=== PATIENT | male | born 2000 | race Caucasian/White ===

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

== ENCOUNTER 2021-09-29 17:54 | Emergency (ER) | payer OTHER ==
[2021-09-29 19:00] VITALS: BP 153/92; PULSE 60; RESP 18; TEMP 97
--- NOTE | 2021-09-29 20:49 | ED ---
URI HPI - General Chief Complaint: Upper Respiratory Infection Stated Complaint: Cough/weak Source: patient, RN notes reviewed Mode of arrival: ambulatory Limitations: no limitations - History of Present Illness Initial Comments: Patient is a 21-year-old male that presents to emergency department complaining of runny nose cough and other upper respiratory tract symptoms for about a week and half. He notes he can emergency room to get evaluated for Covid. He just wanted make sure. Patient was otherwise well-appearing in no apparent distress. Denied any other issues or complaints. He denied chest pain shortness breath headache nausea vomiting diarrhea constipation fever fatigue chills. - Related Data Home Medications Medication Instructions Recorded Confirmed Dextroamphetamine/Amphetamine 10 mg PO DAILY 02/13/15 02/13/15 [Adderall] Allergies Allergy/AdvReac Type Severity Reaction Status Date / Time No Known Allergies Allergy Verified 09/29/21 19:00 Review of Systems ROS Statement: Those systems with pertinent positive or pertinent negative responses have been documented in the HPI. ROS Other: All systems not noted in ROS Statement are negative. Past Medical History Past Medical History: No Reported History History of Any Multi-Drug Resistant Organisms: None Reported Past Surgical History: No Surgical Hx Reported Past Psychological History: ADD/ADHD Smoking Status: Never smoker Past Alcohol Use History: None Reported Past Drug Use History: Marijuana General Exam Limitations: no limitations General appearance: alert, in no apparent distress Head exam: Present: atraumatic, normocephalic, normal inspection Eye exam: Present: normal appearance, PERRL, EOMI. Absent: scleral icterus, conjunctival injection, periorbital swelling ENT exam: Present: normal exam, mucous membranes moist Neck exam: Present: normal inspection Respiratory exam: Present: normal lung sounds bilaterally. Absent: respiratory distress, wheezes, rales, rhonchi, stridor Cardiovascular Exam: Present: regular rate, normal rhythm, normal heart sounds. Absent: systolic murmur, diastolic murmur, rubs, gallop, clicks Extremities exam: Present: normal inspection, full ROM, normal capillary refill. Absent: tenderness, pedal edema, joint swelling, calf tenderness Neurological exam: Present: alert, oriented X3 Psychiatric exam: Present: normal affect, normal mood Skin exam: Present: warm, dry, intact, normal color. Absent: rash Course Vital Signs 09/29/21 18:57 Temperature 97.0 F L Pulse Rate 60 Respiratory 18 Rate Blood Pressure 153/92 O2 Sat by Pulse 99 Oximetry Medical Decision Making - Medical Decision Making 21-year-old male with upper respiratory tract symptoms for about a week and a half. Covid test ordered. Covid test negative. Patient was informed the most likely has other upper respiratory tract infection. Patient will discharge home. Case discussed with Dr. Bell. - Lab Data Lab Results 09/29/21 Range/Units 19:02 Coronavirus (PCR) Not Detected (Not Detectd) Disposition Clinical Impression: Acute upper respiratory infection Disposition: HOME SELF-CARE Condition: Stable Instructions (If sedation given, give patient instructions): Upper Respiratory Infection (ED) Additional Instructions: Please return to the Emergency Department if symptoms worsen or any other concerns. Follow-up with primary care 1-2 days. Take Tylenol Motrin as needed for aches pains and fevers. Is patient prescribed a controlled substance at d/c from ED?: No Referrals: Don Quesada MD [Primary Care Provider] - 1-2 days Time of Disposition: 20:48
== END 2021-09-29 20:56 | disposition home or self-care (01) ==
LOC: EC 17:54
DX: R05.9 Cough, unspecified (principal); R53.1 Weakness; J06.9 Acute upper respiratory infection, unspecified; Z20.822 Contact with and (suspected) exposure to COVID-19
CPT/HCPCS: 87635; 99283

== ENCOUNTER 2022-05-05 11:59 | Emergency (ER) | payer OTHER ==
[2022-05-05 12:03] VITALS: BP 133/81; PULSE 105; RESP 18; TEMP 98.7
[2022-05-05] MEDS ORDERED: ONDANSETRON ODT 4 MG TAB PO STA (12:41)
[2022-05-05] MEDS ORDERED: IBUPROFEN 600 MG TAB PO STA (12:41)
[2022-05-05] MEDS ORDERED: ACETAMINOPHEN TAB 500 MG TAB PO STA (12:41)
[2022-05-05] MEDS ORDERED: ONDANSETRON 4 MG ODT STARTER PACK 2 TAB BTL PO STA (13:00)
--- NOTE | 2022-05-05 13:00 | ED ---
General Adult HPI - General Chief complaint: Headache Stated complaint: Migraine Time Seen by Provider: 05/05/22 12:15 Source: patient, RN notes reviewed, old records reviewed Mode of arrival: ambulatory - History of Present Illness Initial comments: This is a 21-year-old male who presents emergency department stating that he is not vaccinated but he got tested this morning and he tested positive for COVID. Patient complains of a headache little bit of a sore throat a little lower back aching. Patient also states he has a fever. Patient states he vomited times one. Patient denies any chest pain difficulty breathing shortness of breath. Patient denies any diarrhea. - Related Data Home Medications Medication Instructions Recorded Confirmed Dextroamphetamine/Amphetamine 10 mg PO DAILY 02/13/15 02/13/15 [Adderall] Allergies Allergy/AdvReac Type Severity Reaction Status Date / Time No Known Allergies Allergy Verified 05/05/22 12:03 Review of Systems ROS Statement: Those systems with pertinent positive or pertinent negative responses have been documented in the HPI. ROS Other: All systems not noted in ROS Statement are negative. Past Medical History Past Medical History: No Reported History History of Any Multi-Drug Resistant Organisms: None Reported Past Surgical History: No Surgical Hx Reported Past Psychological History: ADD/ADHD Smoking Status: Never smoker Past Alcohol Use History: None Reported Past Drug Use History: Marijuana General Exam - General Exam Comments Initial Comments: GENERAL: Patient is well-developed and well-nourished. Patient is nontoxic and well- hydrated and is in mild distress. ENT: Neck is soft and supple. No significant lymphadenopathy is noted. Oropharynx is clear. Moist mucous membranes. Neck has full range of motion without eliciting any pain. EYES: The sclera were anicteric and conjunctiva were pink and moist. Extraocular movements were intact and pupils were equal round and reactive to light. Eyelids were unremarkable. PULMONARY: Unlabored respirations. Good breath sounds bilaterally. No audible rales rhonchi or wheezing was noted. CARDIOVASCULAR: There is a regular rate and rhythm without any murmurs gallops or rubs. ABDOMEN: Soft and nontender with normal bowel sounds. SKIN: Skin is clear with no lesions or rashes and otherwise unremarkable. NEUROLOGIC: Patient is alert and oriented x3. Cranial nerves II through XII are grossly intact. Motor and sensory are also intact. Normal speech, volume and content. Symmetrical smile. MUSCULOSKELETAL: Normal extremities with adequate strength and full range of motion. LYMPHATICS: No significant lymphadenopathy is noted PSYCHIATRIC: Normal psychiatric evaluation. Course Vital Signs 05/05/22 12:00 Temperature 98.7 F Pulse Rate 105 H Respiratory 18 Rate Blood Pressure 133/81 O2 Sat by Pulse 98 Oximetry Disposition Clinical Impression: COVID-19 Disposition: HOME SELF-CARE Condition: Good Instructions (If sedation given, give patient instructions): COVID-19 (Coronavirus Disease 2019) (ED) Is patient prescribed a controlled substance at d/c from ED?: No Referrals: Don Quesada MD [Primary Care Provider] - 1-2 days Time of Disposition: 13:00
== END 2022-05-05 13:22 | disposition home or self-care (01) ==
LOC: EC 11:59
DX: U07.1 COVID-19 (principal)
CPT/HCPCS: 99283; S0119

== ENCOUNTER → 2022-07-30 | Outpatient (CLI) | payer OTHER ==
--- NOTE | 2022-07-30 16:10 | XR ---
EXAMINATION TYPE: XR knee complete LT DATE OF EXAM: 07/30/2022 COMPARISON: NONE HISTORY: M19.90 UNSPECIFIED OSTEOARTHRITIS, UNSPECIFIED SIT TECHNIQUE: Frontal, lateral, and oblique views of the left knee. FINDINGS: Bone mineralization is within normal limits. No acute fracture or dislocation. No soft tiss ue edema. Small suprapatellar joint effusion. No significant joint space narrowing are marginal spurr ing. IMPRESSION: 1. No evidence for acute fracture or dislocation. 2. Small suprapatellar joint effusion.
== END | disposition home or self-care (01) ==
LOC: RADXRMAIN 15:36
PROVIDERS: ATTEND Family Medicine
DX: M25.562 Pain in left knee (principal); M19.90 Unspecified osteoarthritis, unspecified site